=== PATIENT | female | born 1995 | race African-American/Black ===

== ENCOUNTER 2016-08-03 03:47 | Emergency (ER) | payer OTHER ==
[~2016-08-03] VITALS: Ht 152.4 cm; Wt 49.9 kg
[~2016-08-03 03:47] MED LIST: IBUPROFEN600 M1 PO; MOTRIN 100100 MG/5 M PO; PRENATAL1 TA2 PO; ZOFRAN ODT4 MG SL
[2016-08-03 04:56] VITALS: BP 109/65
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
== END 2016-08-03 07:47 ==
LOC: ERH 03:47
DX: S39.012A Strain of muscle, fascia and tendon of lower back, initial encounter (principal); S90.111A Contusion of right great toe without damage to nail, initial encounter; V49.40XA Driver injured in collision with unspecified motor vehicles in traffic accident, initial encounter